=== PATIENT | male | born 1945 | race Caucasian/White ===

== ENCOUNTER 2019-08-12 07:00 | Outpatient (CLI) | payer MEDICARE, SELFPAY ==
[2019-08-12 07:13] LABS: Hematocrit 44.6 % (37.0-46.0); Hemoglobin 15.2 g/dL (12.4-15.3); Mean Corpuscular HGB Conc 34.1 g/dL (32.0-36.0); Mean Corpuscular Hemoglobin 30.5 pg (27.0-31.0); Mean Corpuscular Volume 89.6 fL (78.0-102.0); Mean Platelet Volume 9.5 fl (8.7-11.0); Platelet Count Result 216 K/mm3 (150-420); Red Blood Count 4.98 M/mm3 (4.70-6.10); Red Cell Distribution Width 13.2 % (11.6-14.4); White Blood Count 3.9 K/mm3 (4.8-10.8)
[2019-08-12 08:14] LABS: Alanine Aminotransferase 22 U/L (16-63); Albumin Level 3.8 g/dL (3.4-5.0); Alkaline Phosphatase 65 U/L (46-116); Anion Gap 11.1 mmol/L (7-16); Aspartate Amino Transferase 18 U/L (15-37); Bilirubin,Total 0.6 mg/dL (0.00-1.00); Blood Urea Nitrogen 13 mg/dL (7-18); Calcium 8.7 mg/dL (8.5-10.1); Carbon Dioxide 29 mmol/L (21-32); Chloride 104 mmol/L (98-108); Cholesterol 265 mg/dL (0-200); Estimated Glomerular Filt Rate > 60; Glucose 92 mg/dL (70-99); HDL Direct 61 mg/dL (40-60); LDL Cholesterol Calculated 191 mg/dL (<130); Osmolality Calculated 290 mOsm/kg (285-295); Potassium 4.1 mmol/L (3.5-5.1); Sodium 140 mmol/L (136-145); Total Protein 6.8 g/dL (6.4-8.2); Triglycerides 66 mg/dL (0-150)
== END 2019-08-12 07:01 | disposition home or self-care (01) ==
PROVIDERS: PCP Family Medicine; Visit Provider Family Medicine
DX: E78.5 Hyperlipidemia, unspecified (principal)
CPT/HCPCS: 36415; 80053; 80061; 85027

== ENCOUNTER 2021-01-17 01:06 | Day surgery (SDC) | payer MEDICARE, SELFPAY ==
[2021-01-02 13:31] VITALS: BMI 24.4
[2021-01-17 09:00] VITALS: BP 133/69; PULSE 64; RESP 18; TEMP 35.9; O2SAT 98; BMI 24.1
[2021-01-17] MEDS: LACTATED RINGERS 1,000 ML 150 ML IV CONT (09:12)
--- NOTE | 2021-01-17 09:13 | WPDANESEPPF ---
Anes - Initial Pre Proc Eval Procedure: Operation Date: 01/17/21 10:30 Proposed Procedures p Esophagogastroduodenoscopy - Leoncio Lerner MD Date/Time: 01/17/21 09:13 Surgeon: Leoncio Lerner MD Pre Op Diagnosis: dysphagia Patient Data Age: 75 Gender: M Height: 1.78 m Weight: 76.4 kg Last Vital Signs Temp 35.9 C L 01/17/21 09:00 Pulse 64 01/17/21 09:00 Resp 18 01/17/21 09:00 BP 133/69 01/17/21 09:00 Pulse Ox 98 01/17/21 09:00 Allergies Allergy/AdvReac Type Severity Reaction Status Date / Time No Known Allergies Allergy Verified 01/02/21 13:30 Home Medications Medication Instructions Recorded Confirmed Type No Home Medications 08/11/19 01/17/21 History Patient hx anesthesia problems: none Family hx anesthesia problems: none Results Review: All pre-operative results and documents have been reviewed as part of the pre-operative evaluation. [facility] Past Medical History Medical History Family history of colon cancer No active medical problems Surgical History Surgical History History of hernia repair Family History Family History Father Carcinoma of colon, Onset Age: 59 Other Diabetes mellitus Family history of cardiovascular disease Social History Social History Smoking status: Never smoker Alcohol intake: never Substance use type: does not use Living arrangements: with family Anes - Eval Final PreProcedure Day of Procedure 01/17/21 09:13 Patient weight: normal Heart: regular rate and rhythm Lungs: clear to auscultation Airway: Mallampati scale class II Neurological: alert and oriented Last oral intake: >/= 8 hours ASA classification: II Emergent: no Anesthetic plan: proceed Anesthesia type and monitoring: general GIVS and standard monitoring Results Review: All pre-operative results and documents have been reviewed as part of the pre-operative evaluation. Informed Consent: The patient's anesthetic plan and its attendant risks and benefits were discussed with the patient/family/POA. Questions were solicited and answers provided to the satisfaction of the patient/family/POA.
--- NOTE | 2021-01-17 09:26 | PM.HPGS ---
History of Present Illness History of Present Illness Consent: Risks, benefits, and alternatives have been discussed and questions answered. Patient agrees to proceed with procedure. Chief complaint: dysphagia Narrative: Roderick Gonzalez is a 75 year old male with dysphagia to solids for last year, feels that sometimes getting caught at chest level, never had egd. Review of Systems Constitutional: Constitutional: Denies headache(s) and Denies weakness Eyes: Eyes: Denies blurry vision ENT: Reports Normal hearing present, Denies headache(s) and Denies neck pain Cardiovascular: Cardiovascular: Denies chest pain and Denies dyspnea Respiratory: Respiratory: Denies dyspnea Gastrointestinal: Gastrointestinal: Reports no additional gastrointestinal complaints Genitourinary: Genitourinary: Denies dysuria Musculoskeletal: Musculoskeletal: Denies neck pain Integumentary/Breasts: Skin/Breast: Denies dry skin Neurologic: Reports Normal hearing present, Denies headache(s) and Denies weakness Psychiatric: Psychiatric: Denies anxiety Endocrine: Endocrine: Denies change in body appearance Hematologic/Lymphatic: Hematologic/Lymphatic: Denies easy bleeding Allergic/Immunologic: Allergic/Immunologic: Denies urticaria PMFSH Past Medical History Medical History Family history of colon cancer No active medical problems Surgical History Surgical History History of hernia repair Family History Family History Father Carcinoma of colon, Onset Age: 59 Other Diabetes mellitus Family history of cardiovascular disease Social History Social History Smoking status: Never smoker Alcohol intake: never Substance use type: does not use Living arrangements: with family Meds Home Medications and Allergies Home Medications Medication Instructions Recorded Confirmed Type No Home Medications 08/11/19 01/17/21 History Allergies Allergy/AdvReac Type Severity Reaction Status Date / Time No Known Allergies Allergy Verified 01/02/21 13:30 Vital Signs Vital Signs - 24 hr 01/17/21 09:00 Temperature 96.6 F L Pulse Rate 64 Respiratory Rate 18 Blood Pressure 133/69 Pulse Oximetry 98 Exam Const: General: comfortable and no acute distress HENMT: General nose exam: Normal nares present Eyes: General: appearance normal, both eyes and all related structures Neck: Neck: no JVD Resp: Auscultation: clear to auscultation bilaterally Cardio: Rate: regular rate Rhythm: regular rhythm GI: Inspection: non-distended GI Palp: Yes Soft to palpation Skin: General skin exam: normal color Neuro: General: gait normal Speech: normal speech Extrem: General: normal to inspection Psych: Mental Status: mental status grossly normal Assessment and Plan Assessment and plan (1) Dysphagia: Code(s): R13.10 - Dysphagia, unspecified Status: Acute Assessment and Plan: egd with bx, may need dilation based on findings.
[2021-01-17 09:37] VITALS: BP 110/64; PULSE 61; RESP 15; O2SAT 100
[2021-01-17 09:47] VITALS: BP 120/71; PULSE 63; RESP 21; O2SAT 99
[2021-01-17 09:57] VITALS: BP 114/72; PULSE 64; RESP 19; O2SAT 100
== END 2021-01-17 10:08 | disposition home or self-care (01) ==
PROVIDERS: PCP Family Medicine; Visit Provider Internal Medicine Gastroenterology
PROC: 0DJ08ZZ Inspection of Upper Intestinal Tract, Via Natural or Artificial Opening Endoscopic (ICD-10-PCS; CPT 43235; principal; 2021-01-17 10:30)
DX: R13.10 Dysphagia, unspecified (principal); K22.2 Esophageal obstruction; K44.9 Diaphragmatic hernia without obstruction or gangrene; Z80.0 Family history of malignant neoplasm of digestive organs
CPT/HCPCS: 43249; C1726; J2704; J7120

== ENCOUNTER 2021-06-27 14:36 | Outpatient (CLI) | payer MEDICARE, SELFPAY | END 2021-06-27 14:37 | disposition home or self-care (01) | LOC: CHSOUTPT 14:38 | PROVIDERS: PCP Family Medicine; Visit Provider Specialist | DX: D22.39 Melanocytic nevi of other parts of face (principal) | CPT/HCPCS: 88305 ==

== ENCOUNTER 2022-01-09 10:46 | Outpatient (CLI) | payer MEDICARE, SELFPAY | END 2022-01-09 10:47 | disposition home or self-care (01) | LOC: CHSLAB 10:49 | PROVIDERS: PCP Family Medicine; Visit Provider Specialist | DX: C44.42 Squamous cell carcinoma of skin of scalp and neck (principal) | CPT/HCPCS: 88305 ==

== ENCOUNTER 2023-03-12 10:39 | Outpatient (CLI) | payer MEDICARE, OTHER, SELFPAY | END 2023-03-12 10:40 | disposition home or self-care (01) | LOC: CHSLAB 10:49 | PROVIDERS: PCP Family Medicine; Visit Provider Specialist | DX: L82.1 Other seborrheic keratosis (principal) | CPT/HCPCS: 88305 ==

== ENCOUNTER 2023-10-29 15:32 | Outpatient (CLI) | payer MEDICARE, OTHER, SELFPAY | END 2023-10-29 15:33 | disposition home or self-care (01) | LOC: CHSLAB 15:34 | PROVIDERS: PCP Family Medicine; Visit Provider Specialist | DX: C44.329 Squamous cell carcinoma of skin of other parts of face (principal) | CPT/HCPCS: 88305 ==